=== PATIENT | female | born 1995 | race Caucasian/White ===

== ENCOUNTER 2018-07-10 16:50 | Emergency (ER) | payer OTHER ==
[2018-07-10 16:57] VITALS: RESP 16; TEMP 98.6
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
[2018-07-10 18:58] VITALS: BP 122/78; PULSE 76; O2SAT 98
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
== END 2018-07-10 18:57 | disposition home or self-care (01) ==
LOC: C.ER 16:50
DX: S16.1XXA Strain of muscle, fascia and tendon at neck level, initial encounter (principal); S20.219A Contusion of unspecified front wall of thorax, initial encounter; V49.49XA Driver injured in collision with other motor vehicles in traffic accident, initial encounter; Y92.410 Unspecified street and highway as the place of occurrence of the external cause